=== PATIENT | male | born 1965 | race African-American/Black ===

== ENCOUNTER 2019-04-23 12:29 | Emergency (ER) | payer OTHER ==
[~2019-04-23] VITALS: Ht 180.3 cm; Wt 69.9 kg
[2019-04-23] MEDS ORDERED: SODIUM CHLORIDE 0.9% 1,000 ML IV ONE ×2 (13:00)
[2019-04-23 13:30] LABS: Basophils # (auto) 0 uL; Basophils % (auto) 0.2 % (0.0-2.0); Eosinophils # (auto) 0 uL; Eosinophils % (auto) 0.2 % (0.0-7.0); Hematocrit 43.3 % (41.0-53.0); Hemoglobin 14.4 g/dL (13.5-17.5); Lymphocytes # (auto) 1.2 uL; Lymphocytes % (auto) 15.6 % (10.0-50.0); Mean Corpuscular Hemoglobin 30.8 pg (28.0-32.0); Mean Corpuscular Hgb Conc. 33.2 g/dL (32.0-36.0); Mean Corpuscular Volume 92.6 fL (80.0-100.0); Monocytes # (auto) 0.4 uL; Monocytes % (auto) 6.1 % (0.0-12.0); Neutrophils # (auto) 5.7 uL; Neutrophils % (auto) 77.9 % (37.0-80.0); Nucleated Red Blood Cells % 0.1 %; Platelet Count (auto) 143 10^3/uL (140-450); Red Blood Cells 4.67 10^6/uL (4.5-5.90); White Blood Cell 7.4 10^3/uL (4.4-10.8)
[2019-04-23 13:44] LABS: INR 1.02 (0.9-1.15); Partial Thromboplastin Time 31.6 sec (23.64-32.05)
[2019-04-23 13:49] LABS: Albumin 3.9 g/dL (3.4-5.0); Calcium 8.6 mg/dL (8.5-10.1); Potassium 3.5 mmol/L (3.5-5.1)
[2019-04-23 13:52] LABS: BUN/Creatinine Ratio 16.3; Bilirubin, Total 1.7 mg/dL (0.2-1.0); Total Protein 7.1 g/dL (6.4-8.2)
[2019-04-23] MEDS ORDERED: MORPHINE SULFATE 4 MG/ML SYR/VIAL IV ONE (15:00)
[2019-04-23] MEDS ORDERED: ONDANSETRON HCL 4 MG/2 ML VIAL IV ONE (15:00)
[2019-04-23] MEDS ORDERED: CLINDAMYCIN 900MG IV 50 ML IV ONE (15:30)
[2019-04-23] MEDS ORDERED: cefTRIAXone 1GM/50ML D5W 50 ML IV ONE (15:30)
[2019-04-23 16:10] VITALS: BP 107/67
== END 2019-04-23 16:15 | disposition short-term general hospital (02) ==
LOC: ER 12:29 → EDBD 12:29 → EEVIPCON 12:29 → ER 16:15
DX: S02.40DA Maxillary fracture, left side, initial encounter for closed fracture (principal); S02.40CA Maxillary fracture, right side, initial encounter for closed fracture; S00.83XA Contusion of other part of head, initial encounter; I10 Essential (primary) hypertension; Y04.2XXA Assault by strike against or bumped into by another person, initial encounter; Y93.89 Activity, other specified; Y92.89 Other specified places as the place of occurrence of the external cause; Y99.8 Other external cause status
CPT/HCPCS: 36415; 70450; 70486; 71045; 80053; 85025; 85610; 85730; 96374; 96375; 99285; J0696; J2270; J2405; J3490; J7030

== ENCOUNTER 2019-10-12 22:38 | Emergency (ER) | payer OTHER ==
[~2019-10-12] VITALS: Ht 180.3 cm; Wt 68.0 kg
[2019-10-12] MEDS ORDERED: cefTRIAXone SOD 1,000 MG VL IM ONE (23:15)
[2019-10-12] MEDS ORDERED: TETANUS-DIPTH-ACEL PERTUSSIS 0.5ML SYRG IM ONE (23:15)
[2019-10-13 05:04] LABS: Urine Amorphous Crystal FEW /hpf (None Seen); Urine Bacteria FEW /hpf (None Seen); Urine Blood 3+ /uL (Negative); Urine Hyaline Cast MOD /lpf (0 - 2); Urine Mucus FEW (None Seen); Urine Specific Gravity 1.022 (1.001-1.035); Urine WBC 5 /hpf (0 - 3)
[2019-10-13 05:09] VITALS: BP 101/76
== END 2019-10-13 03:35 | disposition home or self-care (01) ==
LOC: ER 22:38 → EEVIPCON 22:38 → ER 10-13 03:35
DX: S02.2XXA Fracture of nasal bones, initial encounter for closed fracture (principal); S02.40DA Maxillary fracture, left side, initial encounter for closed fracture; M54.2 Cervicalgia; M25.562 Pain in left knee; I10 Essential (primary) hypertension; Y04.2XXA Assault by strike against or bumped into by another person, initial encounter; Y93.89 Activity, other specified; Y92.89 Other specified places as the place of occurrence of the external cause; Y99.8 Other external cause status
CPT/HCPCS: 70450; 70486; 72125; 72128; 72131; 73560; 74176; 81001; 90471; 90715; 96372; 99285; J0696